=== PATIENT | female | born 1960 | race Caucasian/White ===

== ENCOUNTER 2017-01-30 11:51 | Observation (INO) | payer BC ==
[~2017-01-30] VITALS: Ht 167.6 cm; Wt 100.2 kg
[~2017-01-30 11:51] MED LIST: ALPRAZOLAM ER1 MG PO; AMOX TR-K CLV1 EAC4 PO; ANTIBOTIC; BUSPAR15 MG PO; BUSPIRONE HCL15 MG PO; CARAFATE1 GM PO; CELEBREX200 MG PO; CHERATUSSIN AC473 ML PO; COLACE100 MG PO; DESYREL100 MG PO; DIOVAN HCT 81 TABLET PO; DIOVAN160 MG PO; DOXEPIN HCL25 MG PO; DULERA 200 MCG/13 GM IH; ESCITALOPRAM OX20 MG PO; GABAPENTIN300 MG; HYCODAN SYRUP480 ML PO; HYDROCHLOROTH12.5 M3 PO; HYDROCODON-ACE1 EAC7 PO; LASIX20 MG PO; LASIX20 MG/2 ML IV; LEXAPRO20 MG PO; LYRICA50 MG PO; MEDROL DOSEPAK4 MG PO; NAPROXEN500 MG PO; NASONEX17 GM BOTH NARES; NEXIUM40 MG PO; PRAVASTATIN SOD40 MG PO; PREDNISONE20 MG PO; SINEQUAN25 MG PO; SINGULAIR10 MG PO; TORADOL10 MG PO; VALSARTAN-HCTZ1 EACH PO; VICODIN,LORT1 TABLET PO; ZITHROMAX250 MG PO; ZOFRAN ODT4 MG PO
[2017-01-30 13:20] LABS: HEMATOCRIT 33.6 % (36.0-46.0); MCH 29.2 PG (29.0-34.0); MCV 88.4 FL (83-99); MEAN PLAT.VOLUME 11.6 uM^3 (9.5-12.4); PLATELET COUNT 174 K/uL (156-360); RBC DIS.WIDTH-CV 15.7 % (11.8-14.6); RBC DIS.WIDTH-SD 50.3 % (39-53); WHITE BLOOD COUNT 4.7 K/uL (4.1-10.2)
[2017-01-30 13:29] LABS: CHLORIDE 110 mEq/L (99-109); POTASSIUM 3.7 mEq/L (3.7-5.4); SODIUM 144 mEq/L (136-147)
[2017-01-30 13:30] LABS: D-DIMER ELISA 0.73 mg/L FEU (< 0.57)
[2017-01-30 13:31] LABS: GLUCOSE 81 mg/dL (70-99)
[2017-01-30 13:32] LABS: ANION GAP 9 MEQ/L (2-14)
[2017-01-30 13:35] LABS: GFR ESTIMATE (CALCULATED) > 59 mL/min/; UREA NITROGEN (BUN) 13 mg/dL (9-23)
[2017-01-30 13:40] LABS: TROP-I INTERPRETATION NEGATIVE; TROPONIN-I < 0.01 ng/mL (0.0-0.30)
[2017-01-30] MEDS ORDERED: ZOFRAN ODT4 MG PO (16:38)
[2017-01-30] MEDS ORDERED: LEVAQUIN500 MG PO (16:39)
[2017-01-30] MEDS ORDERED: VOLTAREN50 MG PO (16:39)
[2017-01-30] MEDS ORDERED: TYLENOL EXTRA500 MG PO (16:39)
[2017-01-30] MEDS ORDERED: BENZONATATE200 MG PO (16:39)
[2017-01-30] MEDS ORDERED: LIDOCAINE-PRIL1 EACH TP (16:41)
[2017-01-30] MEDS ORDERED: ALPRAZOLAM ER1 MG PO (16:41)
[2017-01-30] MEDS ORDERED: POLY-VITAMIN1 EACH PO (16:42)
[2017-01-30] MEDS ORDERED: ASCORBIC ACID500 M1 PO (16:42)
[2017-01-30] MEDS ORDERED: AMBIEN10 MG PO (16:42)
[2017-01-30] MEDS ORDERED: VOLTAREN75 MG PO (16:43)
[2017-01-30] MEDS ORDERED: CALCIUM500 M4 PO (16:43)
[2017-01-30] MEDS ORDERED: VITAMIN B-121000 MC1 SL (16:43)
[2017-01-30] MEDS ORDERED: [UNRECOGNIZED DRUG - MIXTURE] TP (16:44)
[2017-01-30 17:56] VITALS: BP 152/80
[2017-01-31] VITALS: BP 153/75
[2017-01-31 07:52] VITALS: BP 143/70
[2017-01-31] MEDS ORDERED: VENTOLIN HFA18 GM IH (13:08)
[2017-01-31] MEDS ORDERED: DOXYCYCLINE HY100 M3 PO (13:08)
== END 2017-01-31 14:17 | disposition home or self-care (01) ==
LOC: EME 11:51 → EDOF 16:37 → 5SOUTH 16:37
PROVIDERS: Emergency Medicine
DX: J15.9 Unspecified bacterial pneumonia (principal); E66.01 Morbid (severe) obesity due to excess calories; Z98.84 Bariatric surgery status; J45.909 Unspecified asthma, uncomplicated; I10 Essential (primary) hypertension; E78.5 Hyperlipidemia, unspecified; F32.9 Major depressive disorder, single episode, unspecified; Z87.891 Personal history of nicotine dependence; F41.9 Anxiety disorder, unspecified
CPT/HCPCS: 71020; 71275; 80048; 84484; 85027; 85379; 87040; 87070; 87106; 87205; 87449; 87502; 93005; 94010; 94640; 94640 76; 99202; 99281; 99285; G0378; J0456; J0696; J7050; J7512

== ENCOUNTER 2017-05-17 12:59 | Emergency (ER) | payer OTHER, BC ==
[~2017-05-17] VITALS: Ht 162.6 cm; Wt 94.2 kg
[~2017-05-17 12:59] MED LIST changes: +AMBIEN10 MG PO; +ASCORBIC ACID500 M1 PO; +BENZONATATE200 MG PO; +CALCIUM500 M4 PO; +DOXYCYCLINE HY100 M3 PO; +LEVAQUIN500 MG PO; +LIDOCAINE-PRIL1 EACH TP; +POLY-VITAMIN1 EACH PO; +TYLENOL EXTRA500 MG PO; +VENTOLIN HFA18 GM IH; +VITAMIN B-121000 MC1 SL; +VOLTAREN50 MG PO; +VOLTAREN75 MG PO; +[UNRECOGNIZED DRUG - MIXTURE] TP
[2017-05-17 14:17] LABS: EOSINOPHIL (%) 0.8 % (0-5); EOSINOPHIL COUNT 0.1 K/uL (0-0.3); HEMATOCRIT 36.3 % (36.0-46.0); IMMATURE GRANULOCYTE (%) 0.3 % (0.0-0.7); INSTRUMENT ABS NEUTROPHIL CT 3.6 K/uL; LYMPHOCYTE COUNT 3.5 K/uL (1.0-2.8); MCH 30.2 PG (29.0-34.0); MCHC 32.5 G/DL (30.0-36.0); MCV 92.8 FL (83-99); MEAN PLAT.VOLUME 11.5 uM^3 (9.5-12.4); MONOCYTE (%) 6.7 % (3-12); MONOCYTE COUNT 0.5 K/uL (0-0.8); NEUTROPHIL (%) 46.8 % (45-76); NEUTROPHIL COUNT 3.6 K/uL (1.8-6.4); PLATELET COUNT 233 K/uL (156-360); RBC DIS.WIDTH-CV 14.3 % (11.8-14.6); RBC DIS.WIDTH-SD 47.9 % (39-53); RED BLOOD COUNT 3.91 M/uL (3.80-5.20); WHITE BLOOD COUNT 7.7 K/uL (4.1-10.2)
[2017-05-17 14:26] LABS: CHLORIDE 108 mEq/L (99-109); POTASSIUM 3.5 mEq/L (3.7-5.4); SODIUM 143 mEq/L (136-147)
[2017-05-17 14:28] LABS: GLUCOSE 81 mg/dL (70-99)
[2017-05-17 14:29] LABS: ANION GAP 9 MEQ/L (2-14)
[2017-05-17 14:30] LABS: TOTAL BILIRUBIN 0.7 mg/dL (0.0-1.0)
[2017-05-17 14:31] LABS: ALKALINE PHOSPHATASE 56 IU/L (3-129)
[2017-05-17 14:32] LABS: GFR ESTIMATE (CALCULATED) > 59 mL/min/
[2017-05-17 14:33] LABS: UREA NITROGEN (BUN) 18 mg/dL (9-23)
[2017-05-17 14:37] LABS: TROP-I INTERPRETATION NEGATIVE; TROPONIN-I < 0.01 ng/mL (0.0-0.30)
[2017-05-17 14:41] LABS: ADD MIUA? YES; BILIRUBIN NEGATIVE; BLOOD NEGATIVE; COLOR STRAW ((YELLOW)); GLUCOSE (STRIP) NEGATIVE; KETONES NEGATIVE; LEUKOCYTES TRACE; NITRITE NEGATIVE; PROTEIN (STRIP) NEGATIVE; SPECIFIC GRAVITY 1.008 (1.000-1.030); UROBILINOGEN 0.2 MG/DL (0.2-1.0)
[2017-05-17 14:52] LABS: BACTERIA RARE /HPF; EPITHELIAL CELLS RARE /HPF; MUCUS TRACE /LPF; RED BLOOD CELLS 0-5 /HPF (0-5); WHITE BLOOD CELLS 0-5 /HPF (0-5)
[2017-05-17] MEDS ORDERED: FLEXERIL10 MG PO (19:47)
[2017-05-17] MEDS ORDERED: PERCOCET 5/31 TABLET PO (19:47)
[2017-05-17 20:20] VITALS: BP 158/77
== END 2017-05-17 20:00 | disposition home or self-care (01) ==
LOC: EME 12:59
PROVIDERS: Emergency Medicine
DX: S16.1XXA Strain of muscle, fascia and tendon at neck level, initial encounter (principal); S09.90XA Unspecified injury of head, initial encounter; R07.89 Other chest pain; M54.6 Pain in thoracic spine; V49.40XA Driver injured in collision with unspecified motor vehicles in traffic accident, initial encounter; I10 Essential (primary) hypertension; F32.9 Major depressive disorder, single episode, unspecified; J45.909 Unspecified asthma, uncomplicated; Z88.6 Allergy status to analgesic agent; Z88.2 Allergy status to sulfonamides; Z87.891 Personal history of nicotine dependence; Z98.84 Bariatric surgery status
CPT/HCPCS: 70450; 71260; 72125; 72128; 72141; 80053; 81003; 84484; 85025; 93005; 99281; 99285; J2405; J3010; J7040

== ENCOUNTER 2017-06-04 05:33 | Day surgery (SDC) | payer BC ==
[~2017-06-04] VITALS: Ht 162.6 cm; Wt 94.3 kg
[~2017-06-04 05:33] MED LIST changes: +FLEXERIL10 MG PO; +LEXAPRO10 MG PO; +OXYCODONE-ACET1 EACH PO; +PERCOCET 5/31 TABLET PO
[2017-06-04 06:23] VITALS: BP 142/69
[2017-06-04 10:53] VITALS: BP 153/61
[2017-06-04 11:54] VITALS: BP 122/80
[2017-06-04 13:50] VITALS: BP 127/77
== END 2017-06-04 14:02 | disposition home or self-care (01) ==
LOC: SDC 05:33
PROC: 0WUF0JZ Supplement Abdominal Wall with Synthetic Substitute, Open Approach (ICD-10-PCS; principal; 2017-06-04)
DX: K43.9 Ventral hernia without obstruction or gangrene (principal); I10 Essential (primary) hypertension; J45.909 Unspecified asthma, uncomplicated; Z86.73 Personal history of transient ischemic attack (TIA), and cerebral infarction without residual deficits; K21.9 Gastro-esophageal reflux disease without esophagitis; R00.1 Bradycardia, unspecified; I25.10 Atherosclerotic heart disease of native coronary artery without angina pectoris; E66.9 Obesity, unspecified; Z68.43 Body mass index [BMI] 50.0-59.9, adult; R73.03 Prediabetes; Z82.49 Family history of ischemic heart disease and other diseases of the circulatory system
CPT/HCPCS: C1781; J0330; J0690; J1100; J1170; J1644; J1885; J2001; J2405; J2710; J2795; J3010; J3475; S0020

== ENCOUNTER 2017-07-02 01:49 | Inpatient (IN) | payer BC ==
[~2017-07-02] VITALS: Ht 162.6 cm; Wt 94.4 kg
[2017-07-02 03:08] LABS: HEMATOCRIT 34.1 % (36.0-46.0); MCH 29.8 PG (29.0-34.0); MCHC 32.8 G/DL (30.0-36.0); MCV 90.7 FL (83-99); MEAN PLAT.VOLUME 11.8 uM^3 (9.5-12.4); PLATELET COUNT 207 K/uL (156-360); RBC DIS.WIDTH-SD 47.2 % (39-53); RED BLOOD COUNT 3.76 M/uL (3.80-5.20); WHITE BLOOD COUNT 9.7 K/uL (4.1-10.2)
[2017-07-02 03:20] LABS: CHLORIDE 110 mEq/L (99-109); POTASSIUM 3.8 mEq/L (3.7-5.4); SODIUM 143 mEq/L (136-147)
[2017-07-02 03:22] LABS: GLUCOSE 95 mg/dL (70-99)
[2017-07-02 03:24] LABS: ANION GAP 8 MEQ/L (2-14); TOTAL BILIRUBIN 1.7 mg/dL (0.0-1.0)
[2017-07-02 03:26] LABS: ALKALINE PHOSPHATASE 83 IU/L (3-129); GFR ESTIMATE (CALCULATED) > 59 mL/min/
[2017-07-02 03:27] LABS: UREA NITROGEN (BUN) 19 mg/dL (9-23)
[2017-07-02 03:28] LABS: TROP-I INTERPRETATION NEGATIVE; TROPONIN-I < 0.01 ng/mL (0.0-0.30)
[2017-07-02 03:29] LABS: LIPASE 12 U/L (1.0-51.0)
[2017-07-02 07:25] VITALS: BP 179/79
[2017-07-02 10:55] VITALS: BP 136/74
[2017-07-02 12:44] LABS: INTER. NORMALIZED RATIO 1.2; PROTHROMBIN TIME 12.7 SEC (10.2-12.9)
[2017-07-02 15:04] VITALS: BP 158/96
[2017-07-02 20:07] VITALS: BP 118/68
[2017-07-02 23:36] VITALS: BP 156/75
[2017-07-03 03:50] VITALS: BP 153/74
[2017-07-03 06:13] LABS: HEMATOCRIT 33.5 % (36.0-46.0); MCH 30.6 PG (29.0-34.0); MCHC 32.8 G/DL (30.0-36.0); MCV 93.1 FL (83-99); MEAN PLAT.VOLUME 11.9 uM^3 (9.5-12.4); PLATELET COUNT 198 K/uL (156-360); RBC DIS.WIDTH-CV 14.4 % (11.8-14.6); RBC DIS.WIDTH-SD 48.9 % (39-53); WHITE BLOOD COUNT 6.5 K/uL (4.1-10.2)
[2017-07-03 06:38] LABS: ALKALINE PHOSPHATASE 97 IU/L (3-129); ANION GAP 8 MEQ/L (2-14); CHLORIDE 107 MEQ/L (99-109); DIRECT BILIRUBIN 0.7 mg/dL (0.0-0.3); GFR ESTIMATE (CALCULATED) > 59 mL/min/; GLUCOSE 103 mg/dL (70-99); SAMPLE HEMOLYSIS CHECK 0; SAMPLE ICTERIC CHECK 0; SAMPLE LIPEMIA CHECK 0; SODIUM 141 MEQ/L (136-147); TOTAL BILIRUBIN 1.9 MG/DL (0.0-1.0); UREA NITROGEN (BUN) 10 mg/dL (9-23)
[2017-07-03 07:55] VITALS: BP 136/70
[2017-07-03 11:25] VITALS: BP 154/83
[2017-07-03 16:50] LABS: METH RESISTANT S AUREUS PCR NEGATIVE (NEGATIVE)
[2017-07-03 16:51] LABS: PROBE CHECK PASS; SPECIMEN PROCESSING CONTROL PASS
[2017-07-03 18:20] VITALS: BP 145/75
[2017-07-03 19:45] VITALS: BP 149/83
[2017-07-04] VITALS: BP 145/81
[2017-07-04 03:35] VITALS: BP 171/81
[2017-07-04 05:57] LABS: HEMATOCRIT 31.5 % (36.0-46.0); MCH 31.3 PG (29.0-34.0); MCHC 33.3 G/DL (30.0-36.0); MCV 93.8 FL (83-99); MEAN PLAT.VOLUME 11.9 uM^3 (9.5-12.4); PLATELET COUNT 196 K/uL (156-360); RBC DIS.WIDTH-SD 47.8 % (39-53); RED BLOOD COUNT 3.36 M/uL (3.80-5.20); WHITE BLOOD COUNT 9.6 K/uL (4.1-10.2)
[2017-07-04 06:23] LABS: ALKALINE PHOSPHATASE 111 IU/L (3-129); ANION GAP 8 MEQ/L (2-14); CHLORIDE 106 MEQ/L (99-109); DIRECT BILIRUBIN 0.3 mg/dL (0.0-0.3); GFR ESTIMATE (CALCULATED) > 59 mL/min/; GLUCOSE 117 mg/dL (70-99); POTASSIUM 4.3 MEQ/L (3.7-5.4); SAMPLE HEMOLYSIS CHECK 0; SAMPLE ICTERIC CHECK 0; SAMPLE LIPEMIA CHECK 0; SODIUM 140 MEQ/L (136-147); UREA NITROGEN (BUN) 9 mg/dL (9-23)
[2017-07-04 07:50] VITALS: BP 161/80
[2017-07-04 11:45] VITALS: BP 163/78
[2017-07-04] MEDS ORDERED: COLACE100 MG PO (11:45)
[2017-07-04] MEDS ORDERED: HYDROCODON-ACE1 EAC7 PO (11:45)
== END 2017-07-04 13:45 | disposition home or self-care (01) | DRG 419 ==
LOC: EME 01:49 → 2EAST 04:50 → EDOF 04:50 → ENRESERV 05:16 → 2EAST 07:07
PROVIDERS: Surgery
PROC: 0FT44ZZ Resection of Gallbladder, Percutaneous Endoscopic Approach (ICD-10-PCS; principal; 2017-07-03)
DX: K80.12 Calculus of gallbladder with acute and chronic cholecystitis without obstruction (principal); F41.9 Anxiety disorder, unspecified; K66.8 Other specified disorders of peritoneum; I10 Essential (primary) hypertension; S13.4XXA Sprain of ligaments of cervical spine, initial encounter; Z98.84 Bariatric surgery status; Z87.891 Personal history of nicotine dependence
CPT/HCPCS: 71020; 74176; 74181; 76705; 80048; 80076; 82247; 82248; 83605; 83690; 84484; 85027; 85610; 87040; 87641; 88304; 93005; 94799; 99281; 99285; J0744; J1100; J1170; J1650; J2250; J2270; J2405; J2543; J2710; J3010; J7042; J7050

== ENCOUNTER 2017-12-31 04:11 | Observation (INO) | payer BC ==
[~2017-12-31] VITALS: Ht 162.6 cm; Wt 97.0 kg
[~2017-12-31 04:11] MED LIST changes: +CYANOCOBALAM1000 MCG PO; -VITAMIN B-121000 MC1 SL
[2017-12-31 05:25] LABS: HEMATOCRIT 36.5 % (36.0-46.0); HEMOGLOBIN 11.9 G/DL (11.9-15.5); INTER. NORMALIZED RATIO 1.1; MCHC 32.6 G/DL (30.0-36.0); MCV 91.9 FL (83-99); PLATELET COUNT 248 K/uL (156-360); RBC DIS.WIDTH-CV 14.1 % (11.8-14.6); RBC DIS.WIDTH-SD 47.7 % (39-53); RED BLOOD COUNT 3.97 M/uL (3.80-5.20); WHITE BLOOD COUNT 6.8 K/uL (4.1-10.2)
[2017-12-31 05:26] LABS: ALBUMIN 3.8 g/dL (3.2-4.8); CHLORIDE 107 mEq/L (99-109); POTASSIUM 3.9 mEq/L (3.7-5.4); SODIUM 139 mEq/L (136-147)
[2017-12-31 05:28] LABS: GLUCOSE 93 mg/dL (70-99); PTT 27.3 SEC (25-37)
[2017-12-31 05:30] LABS: TOTAL BILIRUBIN 0.7 mg/dL (0.0-1.0)
[2017-12-31 05:32] LABS: ALKALINE PHOSPHATASE 68 IU/L (3-129); CREATININE 0.8 mg/dL (0.6-1.3); GFR ESTIMATE (CALCULATED) > 59 mL/min/
[2017-12-31 05:33] LABS: UREA NITROGEN (BUN) 21 mg/dL (9-23)
[2017-12-31 05:34] LABS: AST (GOT) 16 IU/L (2-34)
[2017-12-31 05:35] LABS: ALT (GPT) 15 IU/L (3-49)
[2017-12-31 05:36] LABS: TROP-I INTERPRETATION NEGATIVE; TROPONIN-I < 0.01 ng/mL (0.0-0.30)
[2017-12-31 05:44] LABS: QUANTITATIVE HCG < 4.0 MIU/ML
[2017-12-31] MEDS ORDERED: ASPIR-LOW81 MG PO (09:33)
[2017-12-31] MEDS ORDERED: ALPRAZOLAM0.5 MG PO (09:36)
[2017-12-31 10:09] VITALS: BP 158/67
[2017-12-31 11:26] VITALS: BP 112/63
[2017-12-31 13:12] LABS: TROP-I INTERPRETATION NEGATIVE; TROPONIN-I < 0.01 ng/mL (0.0-0.30)
[2017-12-31 15:27] VITALS: BP 134/62
[2017-12-31 19:17] LABS: TROP-I INTERPRETATION NEGATIVE; TROPONIN-I 0.01 ng/mL (0.0-0.30)
[2017-12-31 20:30] VITALS: BP 138/68
[2017-12-31 23:48] VITALS: BP 142/82
[2018-01-01 03:59] VITALS: BP 149/72
[2018-01-01 06:16] LABS: CHLORIDE 108 MEQ/L (99-109); CREATININE 0.7 MG/DL (0.6-1.3); GFR ESTIMATE (CALCULATED) > 59 mL/min/; GLUCOSE 109 mg/dL (70-99); POTASSIUM 4.1 MEQ/L (3.7-5.4); SODIUM 143 MEQ/L (136-147); UREA NITROGEN (BUN) 14 mg/dL (9-23)
[2018-01-01 09:00] VITALS: BP 158/84
[2018-01-01 11:43] VITALS: BP 120/90
== END 2018-01-01 13:35 | disposition home or self-care (01) ==
LOC: EME → EDBD 04:11 → EME 04:11 → 5WEST 07:58 → EDOF 07:58 → ENRESERV 08:07 → EDOF 08:48 → CANRESERV 09:06 → ENRESERV 09:06 → 5WEST 09:56
PROVIDERS: Emergency Medicine; Internal Medicine
DX: R07.9 Chest pain, unspecified (principal); E66.01 Morbid (severe) obesity due to excess calories; Z98.84 Bariatric surgery status; J45.909 Unspecified asthma, uncomplicated; I10 Essential (primary) hypertension; E78.5 Hyperlipidemia, unspecified; F32.9 Major depressive disorder, single episode, unspecified; Z98.890 Other specified postprocedural states; Z87.891 Personal history of nicotine dependence; G89.29 Other chronic pain; M19.90 Unspecified osteoarthritis, unspecified site; Z90.49 Acquired absence of other specified parts of digestive tract; Z88.2 Allergy status to sulfonamides; Z88.8 Allergy status to other drugs, medicaments and biological substances; S20.211A Contusion of right front wall of thorax, initial encounter; J90 Pleural effusion, not elsewhere classified; Z91.81 History of falling
CPT/HCPCS: 71275; 80048; 80053; 81003; 84484; 84702; 85027; 85379; 85610; 85730; 93005; 99281; 99285; G0378; J1650; J2270; J2405; J7030; S0028